=== PATIENT | male | born 1975 | race African-American/Black ===

== ENCOUNTER 2017-12-23 15:01 | Emergency (ER) | payer OTHER ==
[~2017-12-23] VITALS: Ht 180.3 cm; Wt 90.7 kg
[2017-12-23 15:32] VITALS: Ht 180.3 cm; Wt 90.7 kg
[2017-12-23 17:14] VITALS: BP 143/98
== END 2017-12-23 17:14 | disposition home or self-care (01) ==
LOC: ED 15:01
DX: T67.5XXA Heat exhaustion, unspecified, initial encounter (principal); X32.XXXA Exposure to sunlight, initial encounter; Y93.89 Activity, other specified; Y92.89 Other specified places as the place of occurrence of the external cause; Y99.8 Other external cause status; I10 Essential (primary) hypertension